=== PATIENT | male | born 1985 | race Two or more races ===

== ENCOUNTER 2017-08-06 19:20 | Emergency (ER) | payer MEDICAID ==
[~2017-08-06] VITALS: Ht 172.7 cm; Wt 72.6 kg
[2017-08-06 19:29] VITALS: BP 134/89
[2017-08-06] MEDS ORDERED: ACETAMINOPHEN 325 MG TABLET PO ONE (20:00)
[2017-08-06] MEDS ORDERED: TDAP [DIPH/PERTUSSIS/TET] 0.5 ML VIAL IM ONE ×2 (20:00→20:02)
[2017-08-06] MEDS ORDERED: ACETAMINOPHEN ES 500 MG TABLET ONE (20:01)
== END 2017-08-06 20:54 | disposition home or self-care (01) ==
LOC: ER 19:26
DX: S62.635A Displaced fracture of distal phalanx of left ring finger, initial encounter for closed fracture (principal); W27.8XXA Contact with other nonpowered hand tool, initial encounter; Y93.89 Activity, other specified; Y92.89 Other specified places as the place of occurrence of the external cause; Y99.0 Civilian activity done for income or pay
CPT/HCPCS: 73140-TC; 90715; A4606; Z7610

== ENCOUNTER 2020-04-03 13:04 | Emergency (ER) | payer MEDICAID ==
[~2020-04-03] VITALS: Ht 160 cm; Wt 68.0 kg
[2020-04-03 13:06] VITALS: BP 123/77
--- NOTE | 2020-04-03 14:28 | NUR ---
COVID SWAB SENT. Patient discharged to home in stable condition. Written and verbal after care instructions given. Patient verbalizes understanding of instruction.
--- NOTE | 2020-04-04 16:39 | NUR ---
CALLED AND INFORMED OF (+) RESULT
== END 2020-04-03 14:29 | disposition home or self-care (01) ==
LOC: ER 13:07
DX: U07.1 COVID-19 (principal)
CPT/HCPCS: 99283; C9803; U0003